=== PATIENT | female | born 1990 | race African-American/Black ===

== ENCOUNTER 2017-08-07 09:42 | Inpatient (IN) ==
[2017-08-07 14:13] LABS: INR 0.9; PT Patient Result 9.9 SECS; Partial Thromboplastin Time 22.9 SECS (0-40)
[2017-08-07 15:01] LABS: Basophils % 0.1 % (0.0-0.8); Eosinophils # 0.1 10*3/uL (0.0-0.87); Eosinophils % 0.9 % (0.00-10.9); Hematocrit 34.7 VOL% (35.7-47.0); Hemoglobin 11.4 GM/DL (12.0-16.0); Immature Granulocytes % 0.2 %; Immature Granulocytes Absolute 0.02 #; Lymphocytes # 2.5 10*3/uL (1.4-4.0); Lymphocytes % 30.3 % (21.3-54.2); Mean Corpuscular HGB Conc 32.9 GM/DL (32-36); Mean Corpuscular Hemoglobin 30 PG (27-34); Mean Corpuscular Volume 90.4 FL (87-102); Mean Platelet Volume 11.7 FL (9.6-12.0); Monocytes # 0.5 10*3/uL (0.11-0.8); Monocytes % 5.7 % (1.7-12.7); Neutrophils # 5.1 10*3/uL (1.4-7.4); Neutrophils % 62.8 % (38.7-73.9); Platelet Count 197 T/CUMM (130-400); Red Blood Count 3.84 MC/CUMM (3.8-5.5); Red Cell Distribution Width 13.6 % (9.3-17.3); White Blood Count 8.1 T/CUMM (4-12)
[2017-08-07] MEDS ORDERED: ACETAMINOPHEN 500 MG TABLET PO ONE (16:32)
[2017-08-07] MEDS: ACETAMINOPHEN 500 MG TABLET PO PRN (23:51)
[2017-08-08] MEDS: ACETAMINOPHEN 500 MG TABLET PO PRN (10:28)
[2017-08-08] MEDS ORDERED: OXYTOCIN/LR 20 UNIT/1,000 ML BAG IV SCH (11:30)
[2017-08-08 11:34] LABS: Basophils % 0.2 % (0.0-0.8); Eosinophils # 0.1 10*3/uL (0.0-0.87); Eosinophils % 1.1 % (0.00-10.9); Hematocrit 32.8 VOL% (35.7-47.0); Hemoglobin 10.9 GM/DL (12.0-16.0); Immature Granulocytes % 0.5 %; Immature Granulocytes Absolute 0.03 #; Lymphocytes # 2.2 10*3/uL (1.4-4.0); Lymphocytes % 33.6 % (21.3-54.2); Mean Corpuscular HGB Conc 33.2 GM/DL (32-36); Mean Corpuscular Hemoglobin 30 PG (27-34); Mean Corpuscular Volume 89.6 FL (87-102); Mean Platelet Volume 10.6 FL (9.6-12.0); Monocytes # 0.5 10*3/uL (0.11-0.8); Monocytes % 8.1 % (1.7-12.7); Neutrophils # 3.6 10*3/uL (1.4-7.4); Neutrophils % 56.5 % (38.7-73.9); Platelet Count 215 T/CUMM (130-400); Red Blood Count 3.66 MC/CUMM (3.8-5.5); Red Cell Distribution Width 13.6 % (9.3-17.3); White Blood Count 6.4 T/CUMM (4-12)
[2017-08-08 11:47] LABS: PT Patient Result 10.1 SECS; Partial Thromboplastin Time 29.8 SECS (0-40)
[2017-08-08] MEDS ORDERED: BETAMETH SODIUM PHOS/ACETATE 30 MG/5 ML VIAL IM SCH (12:00)
[2017-08-08] MEDS ORDERED: LACTATED RINGERS 1,000 ML IV ONE (12:00)
[2017-08-08 12:09] LABS: Albumin 2.8 G/DL (3.4-5.0); Bilirubin,Total 0.4 MG/DL (0.2-1.0); Calcium 8.9 MG/DL (8.5-10.1); Osmolality,Calculated 271.7 MOS/KG (273-304); Potassium 4.5 MMOL/L (3.5-5.1); Total Protein 6.1 G/DL (6.4-8.3); Uric Acid 3.2 MG/DL (2.6-6.0)
[2017-08-08] MEDS: LACTATED RINGERS 1,000 ML IV SCH ×2 (12:32→19:01)
[2017-08-08] MEDS: CLINDAMYCIN INJ 900 MG in PREMIX 1 EACH IV SCH ×2 (13:00→20:15)
[2017-08-08] MEDS ORDERED: INFLUENZA VIRUS VACCINE 0.5 ML SYRINGE IM ONE (13:11)
[2017-08-09] MEDS ORDERED: CITRIC ACID/SODIUM CITRATE 30 ML UDCUP PO ONE (02:10)
[2017-08-09] MEDS ORDERED: FAMOTIDINE 20 MG/2 ML VIAL IV ONE (02:10)
[2017-08-09] MEDS ORDERED: CITRIC ACID/SODIUM CITRATE 30 ML UDCUP ONE (02:11)
[2017-08-09] MEDS ORDERED: DEXAMETHASONE 4 MG/1 ML VIAL ONE (02:30)
[2017-08-09] MEDS ORDERED: PHENYLEPHRINE 1 MG/10 ML SYRINGE IV ONE (02:30)
[2017-08-09] MEDS ORDERED: ONDANSETRON 4 MG/2 ML VIAL ONE (02:30)
[2017-08-09] MEDS ORDERED: ACETAMINOPHEN INJ 1,000 MG in PREMIX 1 EACH IV ONE (02:49)
[2017-08-09] MEDS ORDERED: ONDANSETRON 4 MG/2 ML VIAL IV PRN (03:20)
[2017-08-09] MEDS ORDERED: OXYTOCIN/LR 20 UNIT/1,000 ML BAG IV ONE ×2 (03:20→06:10)
[2017-08-09] MEDS ORDERED: ACETAMINOPHEN 325 MG TABLET PO PRN (03:20)
[2017-08-09] MEDS ORDERED: RHO(D) IMMUNE GLOBULIN 300 MCG SYRINGE IM ONE (03:20)
[2017-08-09] MEDS ORDERED: CLINDAMYCIN INJ 900 MG in PREMIX 1 EACH IV SCH (03:30)
[2017-08-09] MEDS ORDERED: LACTATED RINGERS 1,000 ML IV SCH (03:30)
[2017-08-09] MEDS ORDERED: TISSUE ADHESIVE 1 EACH APPLICATOR TOP ONE (04:02)
[2017-08-09 04:21] LABS: Barbiturates Screen,Urine Negative (Negative); Benzodiazepines Screen,Urine Negative (Negative); Cannabinoid Screen,Urine Negative (Negative); Opiate Screen,Urine Negative (Negative); Phencyclidine Screen,Urine Negative (Negative)
[2017-08-09] MEDS ORDERED: fentaNYL 100 MCG/2 ML VIAL ONE (04:25)
[2017-08-09 04:40] LABS: Cord Arterial Blood HCO3 20.6 MMOL/L; Cord Venous Blood HCO3 20.6 MMOL/L; Cord Venous Blood PCO2 37.3 MMHG
[2017-08-09] MEDS ORDERED: MEPERIDINE 25 MG/1 ML VIAL IM ONE (05:40)
[2017-08-09] MEDS ORDERED: MEPERIDINE 25 MG/1 ML VIAL IV ONE (05:40)
[2017-08-09] MEDS: DOCUSATE SODIUM 100 MG CAPSULE PO SCH ×2 (09:51→20:22)
[2017-08-09] MEDS: MULTIVITAMIN (PRENATAL) TABLET PO SCH (09:51)
[2017-08-09] MEDS: IBUPROFEN 800 MG TABLET PO PRN ×2 (10:32→18:23)
[2017-08-09] MEDS: CLINDAMYCIN INJ 900 MG in PREMIX 1 EACH IV SCH ×2 (11:47→18:30)
[2017-08-09] MEDS: LACTATED RINGERS 1,000 ML IV SCH (11:49)
[2017-08-09 12:33] LABS: Eosinophils % 0.1 % (0.00-10.9); Hematocrit 27.3 VOL% (35.7-47.0); Hemoglobin 9.3 GM/DL (12.0-16.0); Immature Granulocytes % 0.6 %; Immature Granulocytes Absolute 0.09 #; Lymphocytes # 1.9 10*3/uL (1.4-4.0); Lymphocytes % 12.6 % (21.3-54.2); Mean Corpuscular HGB Conc 34.1 GM/DL (32-36); Mean Corpuscular Hemoglobin 30 PG (27-34); Mean Corpuscular Volume 88.6 FL (87-102); Mean Platelet Volume 11.3 FL (9.6-12.0); Monocytes # 0.9 10*3/uL (0.11-0.8); Monocytes % 6.2 % (1.7-12.7); Neutrophils # 12.1 10*3/uL (1.4-7.4); Neutrophils % 80.5 % (38.7-73.9); Platelet Count 205 T/CUMM (130-400); Red Blood Count 3.08 MC/CUMM (3.8-5.5); Red Cell Distribution Width 13.4 % (9.3-17.3); White Blood Count 15.1 T/CUMM (4-12)
[2017-08-09 19:48] LABS: Apearance,Urine CLEAR (Clear); Bilirubin,Urine Negative (Negative); Blood, Urine Negative (Negative); Glucose,Urine (UA) Negative (Negative); Ketones,Urine 80 mg/dL (Negative); Mucus,Urine Occasional /LPF (Occasional); Nitrite,Urine Negative (Negative); Protein,Urine Negative; RBC,Urine 1 /HPF (0-4); Squamous Epithelial Cell,Urine Occasional /HPF (0-10); Urine Color Yellow (Yellow); Urine Specific Gravity 1.011 (1.001-1.035); Urine Urobilinogen < 2.0 EU/DL (0.2-1.0); WBC,Urine 1 /HPF (0-6)
[2017-08-09] MEDS ORDERED: HYDROmorphone 2 MG/1 ML VIAL IV ONE (20:02)
[2017-08-09] MEDS: SIMETHICONE CHEW 80 MG TABLET PO PRN (20:08)
[2017-08-09] MEDS: ONDANSETRON 4 MG/2 ML VIAL IV PRN (20:15)
[2017-08-10] MEDS: CLINDAMYCIN INJ 900 MG in PREMIX 1 EACH IV SCH (03:54)
[2017-08-10] MEDS ORDERED: BISACODYL 10 MG SUPP RECTAL PRN (06:21)
[2017-08-10] MEDS: MAGNESIUM HYDROXIDE SUSP 30 ML UDCUP PO PRN ×2 (06:26→21:13)
[2017-08-10] MEDS: SIMETHICONE CHEW 80 MG TABLET PO PRN ×3 (06:26→21:13)
[2017-08-10] MEDS: MULTIVITAMIN (PRENATAL) TABLET PO SCH (08:54)
[2017-08-10] MEDS: DOCUSATE SODIUM 100 MG CAPSULE PO SCH ×2 (08:54→21:13)
[2017-08-10] MEDS: IBUPROFEN 800 MG TABLET PO PRN ×2 (09:15→21:15)
[2017-08-10] MEDS: ONDANSETRON 4 MG/2 ML VIAL IV PRN (12:25)
[2017-08-10] MEDS: PANTOPRAZOLE 40 MG TABLET PO SCH (14:57)
[2017-08-11] MEDS: ONDANSETRON 4 MG/2 ML VIAL IV PRN (02:38)
[2017-08-11] MEDS: METOCLOPRAMIDE 10 MG/2 ML VIAL IV SCH ×4 (03:12→20:50)
[2017-08-11] MEDS: LACTATED RINGERS 1,000 ML IV SCH ×3 (03:12→21:15)
[2017-08-11] MEDS: MULTIVITAMIN (PRENATAL) TABLET PO SCH (09:32)
[2017-08-11] MEDS: PANTOPRAZOLE 40 MG TABLET PO SCH (09:32)
[2017-08-11] MEDS: DOCUSATE SODIUM 100 MG CAPSULE PO SCH ×2 (09:32→21:15)
[2017-08-11] MEDS: IBUPROFEN 800 MG TABLET PO PRN (11:41)
[2017-08-11] MEDS: SIMETHICONE CHEW 80 MG TABLET PO PRN (11:41)
[2017-08-11 13:27] LABS: Basophils % 0.1 % (0.0-0.8); Eosinophils # 0.2 10*3/uL (0.0-0.87); Eosinophils % 1.4 % (0.00-10.9); Hematocrit 30.5 VOL% (35.7-47.0); Immature Granulocytes % 0.6 %; Immature Granulocytes Absolute 0.08 #; Lymphocytes # 2.1 10*3/uL (1.4-4.0); Lymphocytes % 16.7 % (21.3-54.2); Mean Corpuscular HGB Conc 32.8 GM/DL (32-36); Mean Corpuscular Hemoglobin 29 PG (27-34); Mean Corpuscular Volume 89.7 FL (87-102); Mean Platelet Volume 10.2 FL (9.6-12.0); Monocytes # 0.8 10*3/uL (0.11-0.8); Monocytes % 6.1 % (1.7-12.7); Neutrophils # 9.4 10*3/uL (1.4-7.4); Neutrophils % 75.1 % (38.7-73.9); Platelet Count 243 T/CUMM (130-400); Red Cell Distribution Width 13.5 % (9.3-17.3); White Blood Count 12.5 T/CUMM (4-12)
[2017-08-11 13:53] LABS: Calcium 8.5 MG/DL (8.5-10.1); Osmolality,Calculated 280.1 MOS/KG (273-304)
[2017-08-12] MEDS: METOCLOPRAMIDE 10 MG/2 ML VIAL IV SCH ×4 (02:15→18:54)
[2017-08-12] MEDS: LACTATED RINGERS 1,000 ML IV SCH ×2 (05:13→17:38)
[2017-08-12] MEDS ORDERED: KETOROLAC 30 MG/1 ML VIAL IV ONE (09:40)
[2017-08-12] MEDS: MULTIVITAMIN (PRENATAL) TABLET PO SCH (09:49)
[2017-08-12] MEDS: DOCUSATE SODIUM 100 MG CAPSULE PO SCH ×2 (09:49→22:16)
[2017-08-12] MEDS: PANTOPRAZOLE 40 MG TABLET PO SCH (09:50)
[2017-08-12] MEDS: KETOROLAC 30 MG/1 ML VIAL IV PRN (16:23)
[2017-08-13] MEDS: KETOROLAC 30 MG/1 ML VIAL IV PRN ×2 (00:09→07:35)
[2017-08-13] MEDS: METOCLOPRAMIDE 10 MG/2 ML VIAL IV SCH ×2 (00:11→05:38)
[2017-08-13] MEDS: LACTATED RINGERS 1,000 ML IV SCH (02:40)
[2017-08-13] MEDS: DOCUSATE SODIUM 100 MG CAPSULE PO SCH (08:57)
[2017-08-13] MEDS: MULTIVITAMIN (PRENATAL) TABLET PO SCH (08:57)
[2017-08-13] MEDS: PANTOPRAZOLE 40 MG TABLET PO SCH (08:57)
[2017-08-13 11:11] VITALS: BP 109/72
== END 2017-08-13 15:40 | disposition home or self-care (01) | DRG 540 ==
LOC: N.LDOUT 09:42 → N.LD 09:46 → N.OB 08-09 08:18
PROVIDERS: ADMIT Obstetrics & Gynecology; ATTEND Obstetrics & Gynecology
PROC: LDCSECT (ICD-10-PCS; 2017-08-09 02:15)